=== PATIENT | male | born 1935 | race Asian ===

== ENCOUNTER 2017-05-04 15:15 | Outpatient (RCR) | payer OTHER | END 2017-05-05 | disposition home or self-care (01) | LOC: PTY 15:15 | DX: R20.0 Anesthesia of skin (principal); M43.6 Torticollis | CPT/HCPCS: 97110; 97140; 97161; G0283 ==

== ENCOUNTER 2017-06-01 13:34 | Outpatient (RCR) | payer OTHER | END 2017-06-04 | disposition home or self-care (01) | LOC: PTY 13:34 | DX: R20.0 Anesthesia of skin (principal); M43.6 Torticollis | CPT/HCPCS: 97110; 97140; 97164; G0283 ==

== ENCOUNTER 2017-10-19 14:30 | Outpatient (RCR) | payer OTHER | END 2017-11-02 | disposition home or self-care (01) | LOC: PTY 14:30 | DX: S13.4XXD Sprain of ligaments of cervical spine, subsequent encounter (principal) ==